=== PATIENT | female | born 1980 ===

== ENCOUNTER 2018-02-03 22:23 | Emergency (ER) | payer SELFPAY ==
[2018-02-03 22:23] VITALS: BMI 27.3
[2018-02-03 22:38] VITALS: BP 121/78; RESP 18; O2SAT 97
--- NOTE | 2018-02-03 23:06 | ED PDOC ---
HPI: CCC, URI, Sore Throat Time Seen by Provider: 02/03/18 22:41 Chief Complaint (Nursing): Headache Chief Complaint (Provider): Sore Throat, Fever History Per: Patient History/Exam Limitations: no limitations Have you had recent travel within the past 21 days to any of the following countries: [place], [place], [place] or [place]?: No Onset/Duration Of Symptoms: Hrs (since this morning) Current Symptoms Are (Timing): Still Present Location Of Pain: Throat, Headache Sick Contacts (Context): Friend(s) (boyfriend) Associated Symptoms: Fever, Sore Throat, Myalgias Additional Complaint(s): Patient is a 37 year old female who presents for evaluation of a global headache , bodyaches, sore throat, pain with swallowing, and tactile fever since waking up this morning. Patient reports that she took 650mg Tylenol at 7pm tonight. Patient denies any abdominal pain, chest pain, nausea, vomiting, diarrhea, travel, rash, urinary symptoms, neck pain/stiffness, visual changes, weakness, numbness, or ear pain. Of note, patient's temperature in triage was 101.8 oral. PMD: [facility] LMP: unsure Past Medical History Reviewed: Historical Data, Nursing Documentation, Vital Signs Vital Signs: Last Vital Signs Temp 100.5 F H 02/03/18 23:52 Pulse 88 02/03/18 23:52 Resp 18 02/03/18 22:34 BP 121/78 02/03/18 22:34 Pulse Ox 97 02/04/18 00:05 - Medical History PMH: No Chronic Diseases Denies: Chronic Kidney Disease - Surgical History Surgical History: (x2) - Family History Family History: States: Unknown Family Hx - Living Arrangements Living Arrangements: With Family - Social History Current smoker - smoking cessation education provided: No Alcohol: None Drugs: Denies - Home Medications Home Medications: Ambulatory Orders Medication Instructions Recorded Multivit/Folic Acid/I 1 tab PO DAILY #0 tab 11/25/15 [] Ibuprofen [Motrin Tab] 600 mg PO Q6 PRN #30 tab 05/23/16 oxyCODONE/Acetaminophen [Percocet 1 tab PO Q4 PRN #30 tab 05/23/16 5/325 mg Tab] Acetaminophen [Acetaminophen 8 650 mg PO Q8 PRN #24 tablet.er 02/03/18 Hour] Amoxicillin 875 mg PO BID #14 tablet 02/03/18 Ibuprofen [Motrin Tab] 600 mg PO Q6 PRN #24 tab 02/03/18 - Allergies Allergies/Adverse Reactions: Allergies Allergy/AdvReac Type Severity Reaction Status Date / Time No Known Allergies Allergy Verified 02/03/18 22:33 Review of Systems ROS Statement: Except As Marked, All Systems Reviewed And Found Negative Constitutional: Positive for: Fever ENT: Positive for: Throat Pain Musculoskeletal: Positive for: Other (bodyaches) Neurological: Positive for: Headache Physical Exam - Reviewed Nursing Documentation Reviewed: Yes Vital Signs Reviewed: Yes - Physical Exam Appears: Positive for: Well, Non-toxic, No Acute Distress Head Exam: Positive for: NORMOCEPHALIC Skin: Positive for: Normal Color, Warm, Dry Eye Exam: Positive for: EOMI, PERRL ENT: Positive for: Pharynx Is (clear, uvula midline.), TM Is/Are (nonbulging and nonerythematous bilaterally ), Pharyngeal Erythema, Tonsillar Exudate ( bilaterally), Tonsillar Swelling (2+ hypertrophy). Negative for: Nasal Congestion Neck: Positive for: Painless ROM, Supple. Negative for: Limited ROM ((-) nuchal rigidity) Cardiovascular/Chest: Positive for: Regular Rate, Rhythm Respiratory: Positive for: Normal Breath Sounds (speaking in full sentences, respirations even and nonlabored.). Negative for: Decreased Breath Sounds, Accessory Muscle Use, Respiratory Distress Gastrointestinal/Abdominal: Positive for: Soft. Negative for: Tenderness, Mass , Distended, Guarding Back: Negative for: L CVA Tenderness, R CVA Tenderness, Vertebral Tenderness Extremity: Positive for: Normal ROM. Negative for: Deformity Neurologic/Psych: Positive for: Alert, Oriented (x3), Gait (steady in ED) - Laboratory Results Urine POC: Negative - ECG O2 Sat by Pulse Oximetry: 97 (RA) Pulse Ox Interpretation: Normal Medical Decision Making Medical Decision Making: Clinical Impression: Tonsillitis, Fever, Bodyaches Plans: -Urine Preg Test -Rapid Strep, Throat Culture -Amoxicillin PO -Ibuprofen PO -Re-evaluation 2350 Repeat temp: 100.5 oral Repeat HR: 88 Rapid Strep: Positive On re-evaluation, patient reports improvement of symptoms. On exam, patient remains AAOx3, in no acute distress. On exam, neck is supple, lungs CTA, cardiac RRR, abdomen is soft and non-tender, neuro exam shows no focal findings. VSS, stable for discharge. Diagnostic results d/w the patient in great detail. Dx of fever, tonsillitis, bodyaches d/w the patient. Based on history, exam and diagnostic results plan will be for discharge and outpatient follow up. Advised to follow up with primary care physician in 1-2 days without fail. Advised to take medication as prescribed. Return to the emergency room at any time for any new or worsening symptoms. Patient states she fully agrees with and understands discharge instructions. States that she agrees with the plan and disposition. Verbalized and repeated discharge instructions and plan. I have given the patient opportunity to ask any additional questions. Disposition - Clinical Impression Clinical Impression: Fever, Tonsillitis, Throat pain in adult, Generalized body aches, Strep pharyngitis - Patient ED Disposition Is Patient to be Admitted: No Counseled Patient/Family Regarding: Studies Performed, Diagnosis, Need For Followup, Rx Given - Disposition [facility]errals: [facility] [Outside] Disposition: Routine/Home Disposition Time: 23:55 Condition: STABLE Additional Instructions: FOLLOW UP WITH PMD IN 1-2 DAYS WITHOUT FAIL. RETURN TO ED WITH ANY NEW OR WORSENING SYMPTOMS. Prescriptions: Acetaminophen [Acetaminophen 8 Hour] 650 mg PO Q8 PRN #24 tablet.er PRN Reason: Fever >100.4 F Amoxicillin 875 mg PO BID #14 tablet Ibuprofen [Motrin Tab] 600 mg PO Q6 PRN #24 tab PRN Reason: Fever >100.4 F Instructions: Sore Throat in Adults, Fever, Adult (DC), Strep Throat (DC) Forms: [employer] Program (Czech) Print Language: LUXEMBOURGER - POA Present On Arrival: None
[2018-02-03 23:53] VITALS: PULSE 88; TEMP 100.5
== END 2018-02-04 00:16 | disposition home or self-care (01) ==
LOC: H.ER 22:23
DX: J03.90 Acute tonsillitis, unspecified (principal); R50.9 Fever, unspecified; M79.1 Myalgia; J02.0 Streptococcal pharyngitis